=== PATIENT | female | born 1960 | race Caucasian/White ===

== ENCOUNTER 2017-02-06 22:55 | Observation (INO) | payer BC ==
[~2017-02-06] VITALS: Ht 157.6 cm; Wt 87.0 kg
[~2017-02-06 22:55] MED LIST: ALEVE 220MG220 MG PO
[2017-02-06] MEDS ORDERED: TYLENOL 500MG500 MG PO (23:04)
[2017-02-06 23:21] LABS: BASO % 0.4 % (0.0-2.0); EOS # 0.2 (0.0-0.7); EOS % 1.8 % (0-4.0); GRAN % 68.2 % (42.2-75.2); HEMATOCRIT 44.9 % (37.0-47.0); HEMOGLOBIN 15.6 g/dl (12.5-16.0); LYMPH # 2.2 (1.2-3.4); LYMPH % 21.1 % (20.0-51.0); MEAN CELL VOLUME 94 fl (80.0-100.0); MEAN CORPUSCULAR HEMOGLOBIN 33 pg (27.0-31.0); MEAN CORPUSCULAR HGB CONC 35 g/dl (33.0-37.0); MEAN PLATELET VOLUME 9.5 fl (7.4-10.4); MONO # 0.8 (0.1-0.6); MONO % 8.2 % (1.7-9.3); PLATELET COUNT 290 K/mm3 (130-400); RED BLOOD COUNT 4.77 M/mm3 (4.10-5.30); REDCELL DISTRIBUTION WIDTH-CV 14.1 % (11.5-14.5); WHITE BLOOD COUNT 10.2 K/mm3 (4.8-10.8)
[2017-02-06 23:29] LABS: ADJUSTED CALCIUM 9.5 mg/dL (8.4-10.2); ALANINE AMINOTRANSFERASE 15 U/L (9-52); ALBUMIN 4.3 gm/dL (3.5-5.0); ALKALINE PHOSPHATASE 66 U/L (50-136); ANION GAP 11 mmol/L (7-16); BILIRUBIN,TOTAL 0.4 mg/dL (0.0-1.0); BLOOD UREA NITROGEN 15 mg/dL (7-17); CALCIUM 9.7 mg/dL (8.4-10.2); CARBON DIOXIDE 23 mmol/L (22-30); CHLORIDE 106 mmol/L (98-107); CREATININE, serum 0.77 mg/dL (0.52-1.25); GLUCOSE 100 mg/dL (74-106); LIPASE 285 U/L (23-300); POTASSIUM 3.8 mmol/L (3.4-5.0); SODIUM 140 mmol/L (137-145)
[2017-02-06 23:41] LABS: B-TYPE NATRIURETIC PEPTIDE 49 pg/mL (0-125); TROPONIN-I < 0.012 ng/mL (0.000-0.034)
[2017-02-07] VITALS (13 sets, daily range): BP systolic 85–141; BP diastolic 37–65; PULSE 49–85; TEMP 97.8–98.5
[2017-02-07 03:41] LABS: PROTHROMBIN TIME 10.6 SECONDS (9.7-12.8)
[2017-02-07 03:44] LABS: PARTIAL THROMBOPLASTIN TIME 31.4 SECONDS (26.0-37.0)
[2017-02-07 07:15] LABS: CHOLESTEROL 176 mg/dL (120-200); HDL CHOLESTEROL 44 mg/dL; LDL CHOLESTEROL 92 mg/dL; TRIGLYCERIDE 201 mg/dL
== END 2017-02-07 18:54 | disposition home or self-care (01) ==
LOC: COL.ER 22:55 → MEDICAL 02-07 02:41
PROVIDERS: Emergency Medicine; Nurse Practitioner Family
DX: R07.89 Other chest pain (principal); F17.210 Nicotine dependence, cigarettes, uncomplicated
CPT/HCPCS: 99223-AI; 99239; A9502; G0378; J1650; J2785; J7030

== ENCOUNTER 2017-11-16 08:55 | Inpatient (IN) | payer BC ==
[~2017-11-16] VITALS: Ht 160 cm; Wt 80.1 kg
[~2017-11-16 08:55] MED LIST changes: +TYLENOL 500MG500 MG PO
[2017-12-25] MEDS ORDERED: FOLIC ACID 40400 MCG PO (13:37)
[2017-12-25] MEDS ORDERED: VITAMIN C500 MG PO (13:37)
[2017-12-25] MEDS ORDERED: FERROUS SU325 MG/TAB PO (13:38)
[2017-12-26] VITALS (11 sets, daily range): BP systolic 96–129; BP diastolic 53–75; PULSE 59–78; TEMP 98–98.3
[2017-12-26] MEDS ORDERED: TYLENOL 8 HR PO (05:47)
[2017-12-27 00:27] VITALS: BP 136/67; PULSE 88; TEMP 98.5
[2017-12-27 04:39] VITALS: BP 123/61; PULSE 85; TEMP 98.2
[2017-12-27 06:38] LABS: HEMATOCRIT 35.8 % (37.0-47.0)
[2017-12-27 08:19] VITALS: BP 104/60; PULSE 91; TEMP 98.4
[2017-12-27 12:02] VITALS: BP 97/52; PULSE 67; TEMP 98.2
[2017-12-27 15:13] VITALS: BP 114/58; PULSE 74; TEMP 97.5
[2017-12-27 20:01] VITALS: BP 108/63; PULSE 84; TEMP 98.3
[2017-12-28 00:11] VITALS: BP 113/61; PULSE 74; TEMP 98.5
[2017-12-28 03:56] VITALS: BP 111/56; PULSE 84; TEMP 98.4
[2017-12-28 06:38] LABS: HEMOGLOBIN 12.5 g/dl (12.5-16.0)
[2017-12-28 06:39] LABS: HEMATOCRIT 36.3 % (37.0-47.0)
[2017-12-28 07:24] VITALS: BP 100/58; PULSE 85; TEMP 98.6
[2017-12-28] MEDS ORDERED: ASPI325T6 PO (10:30)
[2017-12-28] MEDS ORDERED: NORCO 325 MG-7.1 TAB PO (10:30)
[2017-12-28] MEDS ORDERED: CELEBREX 200MG200 MG PO (10:30)
[2017-12-28] MEDS ORDERED: COLACE 100100 MG/CAP PO (10:31)
[2017-12-28 11:40] VITALS: BP 101/56; PULSE 74; TEMP 97.6
== END 2017-12-28 13:47 | disposition home or self-care (01) | DRG 470 ==
LOC: JCC 12-26 05:14
PROVIDERS: Orthopaedic Surgery
PROC: 0SR90JA Replacement of Right Hip Joint with Synthetic Substitute, Uncemented, Open Approach (ICD-10-PCS; principal; 2017-12-26 07:30)
DX: M16.11 Unilateral primary osteoarthritis, right hip (principal); Z87.891 Personal history of nicotine dependence
CPT/HCPCS: A4314; A9284; C1713; C1776; J0690; J2250; J2270; J2704; J2795; J3010; J7120

== ENCOUNTER → 2017-12-13 | Outpatient (CLI) | payer BC | LOC: COL.LAB 10:43 | DX: Z01.812 Encounter for preprocedural laboratory examination (principal); Z86.14 Personal history of Methicillin resistant Staphylococcus aureus infection ==